=== PATIENT | male | born 1985 | race Caucasian/White ===

== ENCOUNTER 2017-06-21 08:55 | Emergency (ER) | payer OTHER, SELFPAY | END 2017-06-21 09:49 | disposition home or self-care (01) | PROVIDERS: Emergency Provider Nurse Practitioner Family; Family Provider Family Medicine; Visit Provider Nurse Practitioner Family | DX: J06.9 Acute upper respiratory infection, unspecified (principal); I10 Essential (primary) hypertension; F17.210 Nicotine dependence, cigarettes, uncomplicated | CPT/HCPCS: 87880; 99201 ==

== ENCOUNTER 2017-08-30 17:24 | Emergency (ER) | payer BC, OTHER, SELFPAY ==
[2017-08-30 17:35] VITALS: BP 144/92; PULSE 83; RESP 18; TEMP 36.8; O2SAT 98; BMI 22.1
--- NOTE | 2017-08-30 17:53 | HMH.EDUTC ---
[facility] [place] Clinical Impression: Bronchitis Disposition: Home, Self-Care Condition on Discharge: Good Instructions: DI for Acute Bronchitis Additional Instructions: * Monitor Temp. Follow up if fever develops * humidifier/vaporizer/hot steamy shower * Inhaler every 4-6 hours as needed like we discussed. If unsure how to use it, ask pharmacist to demonstrate how. Should help open airways and improve cough, wheezing, shortness of breath. * Mucinex during the day for your cough and cough suppressant only at night. Be sure to drink lots of water. Insurance may not cover a prescription of mucinex. Might be cheaper to get 400mg tablets and take 2 tablets morning, midday and evening all with lots of water. * Nyquil ok at night since it helps * Start steroid today. Helps with inflammation therefore, cough and wheezing. Follow directions on package. Rvwd side effects. Pt reports they have taken them before. Prescriptions: Albuterol Sulfate [Albuterol HFA Inhaler] 1 - 2 puffs IH Q4-6H PRN #1 inh PRN Reason: Shortness Of Breath Or Wheezing predniSONE [Deltasone 10mg tablet] 10 mg PO BID #10 tab Referrals: Agueda Pal MD [Primary Care Provider] - Forms: Work/School Release Time of Disposition: 18:32 Medical Decision Making Vital Signs: 08/30/17 17:35 Temperature 98.2 F Temperature Source Temporal Artery Scan Pulse Rate [Right Brachial] 83 Respiratory Rate 18 Blood Pressure [Right Arm] 144/92 Blood Pressure Mean [Right Arm] 109 Blood Pressure Source [Right Arm] Automatic Cuff Blood Pressure Position [Right Arm] Sitting 02 Sat by Pulse Oximetry 98 Oxygen Delivery Method Room Air - Lab Data Lab results reviewed: Yes: I reviewed the patient's lab results. Flu A neg Flu B neg - Miguel Inquiry Pt receiving controlled substance: No [facility] [place] - General Stated complaint: Cough Time Seen by Provider: 08/30/17 17:53 Mode of Arrival: Family Vehicle Source of Information: Patient Limitations: No Limitations Description of Symptoms (Recalled from Triage Doc. by RN): cough and burning in chest with cough HEENT Symptoms (Recalled from RN notes): No Resp Symptoms (Recalled from RN notes): Yes (cough) Skin Symptoms (Recalled from RN notes): No MS Symptoms (Recalled from RN notes): No Functional Status (Recalled from RN notes): n/a - History of Present Illness Provider Complaint: c/o nonproductive cough since Monday. Started suddenly . Dayquil and Nyquil helping but not getting better. No known fever, aches, chills. Feels SOA at times. Cough worse with activity. No wheezing. Several people at work with similar (but not the same) symptoms. Nonsmoker. - Related Data Previous Rx's Medication Instructions Recorded Albuterol Sulfate [Albuterol HFA 1 - 2 puffs IH Q4-6H PRN #1 inh 08/30/17 Inhaler] predniSONE [Deltasone 10mg tablet] 10 mg PO BID #10 tab 08/30/17 Allergies Allergy/AdvReac Type Severity Reaction Status Date / Time Penicillins [PENICILLINS] Allergy Intermediate I-RASH Verified 08/30/17 17:38 - Worker's Comp Is this a Worker's Comp case?: No [facility] History I have reviewed the patient's past medical history: Yes Medical History: Denies:: Asthma, Chronic Obstructive Pulmonary Disease (COPD), Diabetes Mellitus Type 1, Diabetes Mellitus Type 2, Hypertension Other Surgeries: Yes: No Previous Surgery ROS Obtained: Yes Systems reviewed as appropriate & no additional complaints - Constitutional Constitutional: Denies body ache, Denies chills, Denies difficulty sleeping ( with nyquil ), Denies fatigue, Denies poor appetite - Eyes Eyes: Denies eye discharge, Denies itchy eyes, Denies other (eye redness) - ENT Ears, Nose, Mouth, and Throat: Denies otalgia, Denies nasal congestion, Denies nasal discharge, Denies post nasal drip - Cardiovascular Cardiovascular: Denies chest pain, Denies irregular heart rhythm - Respiratory Respiratory: Yes as per HPI, No chest congestion, No excessiv
[2017-08-30 18:31] LABS: UTC Influenza A Antigen Negative (Negative); UTC Influenza B Antigen Negative (Negative)
[2017-08-30 18:36] VITALS: BP 142/88; PULSE 80; RESP 20; TEMP 36.8; O2SAT 99
== END 2017-08-30 18:38 | disposition home or self-care (01) ==
PROVIDERS: Emergency Provider Nurse Practitioner Family; Family Provider Family Medicine; PCP Family Medicine
DX: J20.9 Acute bronchitis, unspecified (principal); Z88.0 Allergy status to penicillin
CPT/HCPCS: 87804; 99202

== ENCOUNTER 2021-02-23 09:57 | Emergency (ER) | payer BC, SELFPAY ==
[2021-02-23 10:50] VITALS: BP 123/90; PULSE 101; RESP 20; TEMP 36.7; O2SAT 100; BMI 22.9
--- NOTE | 2021-02-23 11:22 | HMH.EDUTC ---
[facility] [place] Disposition Clinical Impression: Bronchitis Sinusitis Qualifiers: Sinusitis location: unspecified location Chronicity: unspecified Qualified Code(s): J32.9 - Chronic sinusitis, unspecified Disposition: Home, Self-Care Condition on Discharge: Good Instructions: Acute Bronchitis, DI for Sinusitis, DI for COVID-19 (Suspected or Confirmed ), Preventing the Spread of Coronavirus Discharge Instructions Additional Instructions: ? Start antibiotic today. Be sure to complete entire prescription even if feeling better ? Monitor temp. Tylenol every 4 hours as needed and / or ibuprofen every 6 hours as needed ( As long as your primary care physician has told you that it ok to take both. For fever/aches/pains ER if no less than 101 despite Tylenol or Motrin ? Humidifier/vaporizer or hot steamy shower ? Inhaler every 4-6 hours as needed like we discussed. If unsure how to use it, ask pharmacist to demonstrate how. Should help open airways and improve cough, wheezing, and shortness of breath ? Mucinex during the day for your cough and cough suppressant only at night. Be sure to drink lots of water. Insurance may not cover a prescriptions for mucinex. Might be cheaper to get 400mg tablets and take 2 tablet in the morning, mid-day and evening with lots of water. *Start steroid today. Helps with inflammation therefore, cough and wheezing. Follow directions on the package. Reviewed side effects. Patient reports taking them before. Follow up IMMEDIATELY for new or worsening of symptoms OR no noticeable improvement over the next 48-72 hours. 911 immediately for any life threatening symptoms such as chest pain or difficulty breathing Prescriptions: Albuterol Sulfate [Proventil-HFA 90mcg/puff Inh] 1 - 2 puffs IH Q4HP PRN #1 each PRN Reason: Shortness Of Breath Transmission Status: Pending to [facility] # guaiFENesin [Mucinex 600mg tablet] 1 - 2 tab PO Q12HP PRN #20 tab PRN Reason: Cough Transmission Status: Pending to [facility] # predniSONE [Deltasone 10mg tablet] 10 mg PO BID 5 Days #10 tab Transmission Status: Pending to [facility] # Azithromycin [Z-Jean 250mg Tab] 250 mg PO DIRECTED #6 tab Transmission Status: Pending to [facility] #[id number] Referrals: Provider,Referral, [Primary Care Provider] - As needed Forms: Work/School Release Time of Disposition: 11:31 Medical Decision Making - Miguel Inquiry Pt receiving controlled substance: No Miguel was queried for this patient: No Vital Signs: 02/23/21 10:50 Temperature 98.1 F Temperature Source Oral Pulse Rate [Right Brachial] 101 H Respiratory Rate 20 Blood Pressure [Right Arm] 123/90 Blood Pressure Mean [Right Arm] 101 Blood Pressure Source [Right Arm] Automatic Cuff Blood Pressure Position [Right Arm] Sitting 02 Sat by Pulse Oximetry 100 Oxygen Delivery Method Room Air [facility] [place] HPI - General Stated complaint: soa, runny nose, congestion, cough Time Seen by Provider: 02/23/21 11:22 Mode of Arrival: Ambulatory Source of Information: Patient Limitations: No Limitations Description of Symptoms (Recalled from Triage Doc. by RN): PATIENT C/O PRODUCTIVE COUGH, RUNNY NOSE, AND BURNING IN CHEST THAT STARTED YESTERDAY. STATES HE BELIEVES HE HAS AN UPPER RESPIRATORY INFECTION THAT HE GETS EVERY YEAR HEENT Symptoms (Recalled from RN notes): Yes Resp Symptoms (Recalled from RN notes): Yes Skin Symptoms (Recalled from RN notes): No MS Symptoms (Recalled from RN notes): No Functional Status (Recalled from RN notes): WNL - History of Present Illness Provider Complaint: Patient state that he gets sinusitis and bronchitis about every year around this time State that he has been having some sinus congestion with drainge in the back of his throat that he has been able to cough up but now feels like it trying to move into his chest area State that yesterday symptoms started to worse State that now he is having some pressure in
[2021-02-23 11:25] VITALS: BP 123/90; PULSE 101; RESP 20; TEMP 36.7; O2SAT 100
== END 2021-02-23 11:30 | disposition home or self-care (01) ==
PROVIDERS: Emergency Provider Nurse Practitioner
DX: J20.9 Acute bronchitis, unspecified (principal); J32.9 Chronic sinusitis, unspecified; J45.909 Unspecified asthma, uncomplicated
CPT/HCPCS: 99202; G0463